=== PATIENT | female | born 1970 | race Caucasian/White ===

== ENCOUNTER → 2018-08-15 | Outpatient (CLI) | payer BC ==
[2018-08-15 09:21] LABS: BUN/CREATININE RATIO 20; CALCIUM 9.8 MG/DL (8.5-10.1); CARBON DIOXIDE 19 MMOL/L (21-32); CHLORIDE 99 MMOL/L (98-107); CREATININE SERUM 0.76 MG/DL (0.60-1.30); GFR ESTIMATED > 60; GLUCOSE 108 MG/DL (70-105); POTASSIUM 4.4 MMOL/L (3.6-5.0); SODIUM 139 MMOL/L (135-145)
[2018-08-15 15:23] LABS: FREE T4 (FREE THYROXINE) 1.15 NG/DL (0.70-1.48)
== END ==
LOC: LAB FS 08:19
PROVIDERS: ATTEND Pediatrics
DX: D35.2 Benign neoplasm of pituitary gland (principal)
CPT/HCPCS: 36415; 80048; 82024; 82533; 82670; 83001; 83002; 84146; 84305; 84439; 84443

== ENCOUNTER → 2019-12-04 | Outpatient (CLI) | payer BC | LOC: LAB FS 19:59 | PROVIDERS: ATTEND Family Medicine | DX: Z20.828 Contact with and (suspected) exposure to other viral communicable diseases (principal) | CPT/HCPCS: 87635 ==

== ENCOUNTER → 2021-12-24 | Outpatient (CLI) | payer BC ==
--- NOTE | 2021-12-24 12:29 | Diagnostic Imaging Report ---
INDICATION: Left wrist fracture, follow-up. TIME OF EXAM: 11:29 AM No prior studies are available for comparison. FINDINGS: There is an impacted distal radius fracture. No displacement or angulation is seen. There is an old ununited ulnar styloid fracture. Carpal bones and metacarpals are intact. IMPRESSION: Impacted distal radius fracture. Dictated by: Dictated on workstation # [id number]
== END ==
LOC: RAD FS 11:16
PROVIDERS: ATTEND Nurse Practitioner
DX: S52.502D Unspecified fracture of the lower end of left radius, subsequent encounter for closed fracture with routine healing (principal); X58.XXXD Exposure to other specified factors, subsequent encounter
CPT/HCPCS: 73110

== ENCOUNTER → 2022-01-12 | Outpatient (CLI) | payer BC ==
--- NOTE | 2022-01-12 13:34 | Diagnostic Imaging Report ---
INDICATION: Left wrist fracture follow-up. EXAMINATION:: Left wrist dated 01/12/2022 COMPARISON: 12/24/2021 FINDINGS: 3 views the wrist redemonstrate a comminuted fracture of the distal radius alignment is preserved. An old osseous fragment adjacent to the ulnar styloid process is stable. There is overlying soft tissue prominence. No new fractures appreciated. No dislocations. IMPRESSION: 1. Stable distal radius fracture with other findings as above. Dictated by: Dictated on workstation # [id number]
== END ==
LOC: RAD FS 11:19
PROVIDERS: ATTEND Nurse Practitioner
DX: S62.92XD Unspecified fracture of left hand, subsequent encounter for fracture with routine healing (principal); X58.XXXD Exposure to other specified factors, subsequent encounter
CPT/HCPCS: 73110

== ENCOUNTER → 2022-12-07 | Outpatient (CLI) | payer BC ==
--- NOTE | 2022-12-07 16:28 | Diagnostic Imaging Report ---
MRI RT UPPER EXT JOINT W/O Technique: Multiplanar, multisequence MR imaging of the right shoulder was performed without contrast. Comparison: None available. Indication: Right shoulder pain Findings: Rotator cuff: The supraspinatus, infraspinatus, teres minor and subscapularis are all intact. No rotator cuff muscle atrophy. Subtle intramuscular edema in the supraspinatus and infraspinatus is present. Glenoid labrum: No chondrolabral separation or paralabral cyst. Specifically, there is no mass in the suprascapular notch. Long head of biceps: Long head of biceps is normally positioned within the bicipital groove. The intracapsular segment is intact. Bones and cartilage: Humeral head is normal in morphology without fracture or focal osseous lesion. No glenohumeral chondromalacia. The acromioclavicular joint is normal in alignment without significant degenerative change. Soft tissues: No glenohumeral joint effusion. No MRI findings to suggest adhesive capsulitis. No fluid or inflammatory like signal within the subacromial/subdeltoid space to indicate bursitis. IMPRESSION: 1. Subtle intramuscular edema in the supraspinatus and infraspinous muscle bellies without tendon tear. If there is recent injury, this most likely represent normal muscle strain. In the absence of known injury, denervation injury can give this appearance, such as with [place]-Mckeon syndrome. 2. Visualized aspects of the brachial plexus are normal. Additionally, there is no cyst or mass in the suprascapular notch that would impinge upon the suprascapular nerve. Dictated by: Dictated on workstation # [id number]
== END ==
LOC: RAD 12:55
PROVIDERS: ATTEND Nurse Practitioner
DX: M75.111 Incomplete rotator cuff tear or rupture of right shoulder, not specified as traumatic (principal); R60.9 Edema, unspecified
CPT/HCPCS: 73221